=== PATIENT | male | born 1965 | race Two or more races ===

== ENCOUNTER 2023-07-14 20:11 | Emergency (ER) | payer OTHER ==
[~2023-07-14] VITALS: Ht 180.3 cm; Wt 125.0 kg
[2023-07-15 07:27] VITALS: PULSE 97; RESP 16; O2SAT 97
[2023-07-15] MEDS ORDERED: amLODIPine BESYLATE 5 MG TAB PO ONE (07:45)
[2023-07-15] MEDS ORDERED: LOSARTAN POTASSIUM 25 MG TAB PO ONE (07:45)
[2023-07-15 09:40] VITALS: TEMP 98.3; O2SAT 95
[2023-07-15] MEDS ORDERED: ONDANSETRON HCL 4 MG/2 ML VIAL IV ONE (09:45)
[2023-07-15] MEDS ORDERED: MORPHINE SULFATE 4 MG/ML SYR/VIAL IV ONE (09:45)
[2023-07-15 09:48] VITALS: BP 191/106; PULSE 95; RESP 16
== END 2023-07-15 10:01 | disposition short-term general hospital (02) ==
LOC: ER 20:11
DX: S02.85XA Fracture of orbit, unspecified, initial encounter for closed fracture (principal); Z88.0 Allergy status to penicillin; Y04.8XXA Assault by other bodily force, initial encounter; Y93.89 Activity, other specified; Y92.89 Other specified places as the place of occurrence of the external cause; Y99.8 Other external cause status
CPT/HCPCS: 70450; 70486; 72125; 96374; 96375; 99285; J2270; J2405